=== PATIENT | female | born 1955 | race Caucasian/White ===

== ENCOUNTER 2016-09-27 14:51 | Emergency (ER) | payer MEDICAID ==
[~2016-09-27] VITALS: Ht 154.9 cm; Wt 68.0 kg
[~2016-09-27 14:51] MED LIST: SULFAMETHOXAZOL1 TA6 PO
--- NOTE | 2016-09-27 15:31 | Urgent Treatment Center Report ---
History of Present Issue Date/Time Seen by Provider 09/27/16 1510 Visit Reason Pt arrived:Walked Presenting Problem:C/O FLU SYMPTOMS X 2 DAYS. Location if Accident: Onset of symptoms date/time:/ or onset unknown for:MEDICAL HX UNKNOWN Have you (or family members/close friends) recently traveled outside the [place]? N If Yes, where/when: Have you had exposure to infectious disease within the past month? TB? Other? Specify: Patient states that she has been around her grandchildren that was later dx with influenza states that now she has been having flu like symptoms for around 2 days and not got any better Source patient Exam Limitations no limitations ALLERGIES Coded Allergies: No Known Allergies (10/09/15) Home Medications Active Scripts Co-Trimoxazole (Sulfamethoxazole-Trimethoprim 800-160) 1 TAB PO BID 7 Days Prov: 07/11/10 History Medical History General Angina: No [place]: No Hypertension? No Hyperlipidemia? No CHF? No COPD? No Asthma? No CVA? No Seizures? No Diabetes? No GB Disease: Yes MRSA? No TB? No Cancer? No Immunization HX DT/Tetanus NOT SURE Surgical Hx Previous Surgery?Y Gallbladd Hysterect R ELBOW Social History Smoking Hx Smoker: Former Smoker Tobacco: No Alcohol Alcohol: No Review of Systems All Other Systems Reviewed and Negative ENT nose congestion, throat pain. Respiratory cough Physical Exam Vital Signs Vital Signs Date Time Temp Pulse Resp B/P Pulse O2 O2 Flow FiO2 Ox Delivery Rate 09/27 1514 98.3 77 19 140/81 94 General Appearance Appears ill, pale in color, nose red cheeks flush Ear, Nose, Throat sinus pain/drainage, nasal congestion, tonsillar swelling Respiratory Status Yes: trachea midline, chest symmetrical, non tender chest. No: respiratory distress. Cardiovascular normal exam, no peripheral edema, no gallop, no JVD Neurologic alert, normal exam Medical Decision Making LABS/Meds/Orders Pt receiving controlled substance in ED? No Results/Orders Orders Procedure Date/time Status [facility] FLU A,B 09/27 153 Active Departure Departure Time of Disposition 1531 Disposition Left Without Being Seen-ER Clinical Impression Primary Impression: Influenza Secondary Impressions: Influenza A Condition STABLE Patient Instructions DI for Influenza -- Child Discharge Counseling Counseled pt/family regarding diagnosis, test results, medications/RX, home care Prescriptions Current Visit Scripts Oseltamivir Phosphate (Tamiflu 75MG Capsule) 75 MG PO DAILY #7 CAP at 8235
--- NOTE | 2016-09-27 15:31 | Urgent Treatment Center Report ---
History of Present Issue Date/Time Seen by Provider 09/27/16 1510 Visit Reason Pt arrived:Walked Presenting Problem:C/O FLU SYMPTOMS X 2 DAYS. Location if Accident: Onset of symptoms date/time:/ or onset unknown for:MEDICAL HX UNKNOWN Have you (or family members/close friends) recently traveled outside the [place]? N If Yes, where/when: Have you had exposure to infectious disease within the past month? TB? Other? Specify: Patient states that she has been around her grandchildren that was later dx with influenza states that now she has been having flu like symptoms for around 2 days and not got any better Source patient Exam Limitations no limitations ALLERGIES Coded Allergies: No Known Allergies (10/09/15) Home Medications Active Scripts Co-Trimoxazole (Sulfamethoxazole-Trimethoprim 800-160) 1 TAB PO BID 7 Days Prov: 07/11/10 History Medical History General Angina: No [place]: No Hypertension? No Hyperlipidemia? No CHF? No COPD? No Asthma? No CVA? No Seizures? No Diabetes? No GB Disease: Yes MRSA? No TB? No Cancer? No Immunization HX DT/Tetanus NOT SURE Surgical Hx Previous Surgery?Y Gallbladd Hysterect R ELBOW Social History Smoking Hx Smoker: Former Smoker Tobacco: No Alcohol Alcohol: No Review of Systems All Other Systems Reviewed and Negative ENT nose congestion, throat pain. Respiratory cough Physical Exam Vital Signs Vital Signs Date Time Temp Pulse Resp B/P Pulse O2 O2 Flow FiO2 Ox Delivery Rate 09/27 1514 98.3 77 19 140/81 94 General Appearance Appears ill, pale in color, nose red cheeks flush Ear, Nose, Throat sinus pain/drainage, nasal congestion, tonsillar swelling Respiratory Status Yes: trachea midline, chest symmetrical, non tender chest. No: respiratory distress. Cardiovascular normal exam, no peripheral edema, no gallop, no JVD Neurologic alert, normal exam Medical Decision Making LABS/Meds/Orders Pt receiving controlled substance in ED? No Results/Orders Orders Procedure Date/time Status [facility] FLU A,B 09/27 153 Active Departure Departure Time of Disposition 1531 Disposition Left Without Being Seen-ER Clinical Impression Primary Impression: Influenza Secondary Impressions: Influenza A Condition STABLE Patient Instructions DI for Influenza -- Child Discharge Counseling Counseled pt/family regarding diagnosis, test results, medications/RX, home care Prescriptions Current Visit Scripts Oseltamivir Phosphate (Tamiflu 75MG Capsule) 75 MG PO DAILY #7 CAP at 2285
[2016-09-27] MEDS ORDERED: TAMIFLU 75MG CA75 MG PO (15:34)
[2016-09-27 15:38] VITALS: BP 140/81
== END 2016-09-27 15:40 | disposition left against medical advice (07) ==
LOC: UTC 14:51
DX: J10.1 Influenza due to other identified influenza virus with other respiratory manifestations (principal)

== ENCOUNTER → 2017-05-19 | Outpatient (CLI) | payer MEDICAID ==
[~2017-05-19] MED LIST changes: +TAMIFLU 75MG CA75 MG PO
--- NOTE | 2017-05-23 14:49 | RADIOLOGY REPORT PS360 ---
DIG MAMM-SCREEN [facility] W/CAD CAD Screening COMPARISON: Digital mammograms 04/10/2016 and 03/19/2015 INDICATION: There is no personal or family history of breast cancer TECHNIQUE: Standard CC and MLO images were obtained. R2 CAD reviewed. FINDINGS: The breasts are composed primarily of fat with minimal scattered fibroglandular densities throughout both breasts. There are stable tiny nodular densities in the axillary tails of each breast likely low position nodes. There is no suspicious lesion and no suspicious microcalcifications. IMPRESSION: Fatty type breast parenchyma with no suspicious lesion seen recommend yearly follow-up BI-RADS CATEGORY: 1_Negative RECOMMENDED FOLLOWUP: 12M 12 MONTH FOLLOW-UP (A letter has been sent to the patient regarding results of the study.)
== END ==
LOC: RAD 08:41
DX: Z12.31 Encounter for screening mammogram for malignant neoplasm of breast (principal)
CPT/HCPCS: G0202